=== PATIENT | female | born 1980 | race Caucasian/White ===

== ENCOUNTER 2020-01-02 19:02 | Emergency (ER) | payer OTHER, SELFPAY ==
--- NOTE | 2020-01-02 19:04 | ED.GENADULT ---
HPI - General Adult General Chief complaint: Wound/Laceration Stated complaint: Laceration or right hand Time Seen by Provider: 01/02/20 19:04 Source: patient Mode of arrival: ambulatory Limitations: no limitations History of Present Illness HPI narrative: 39-year-old female patient presents to the [facility] with complaints of a laceration to the right index finger. Patient states that she was washing dishes and states that a glass that she was washing broke and lacerated her finger. Denies any numbness or tingling. Patient states last tetanus shot was 2 years ago. Related Data Home Medications Medication Instructions Recorded Confirmed aspirin [Adult Aspirin Regimen] 81 mg PO DAILY 02/14/19 12/05/19 gmjaoxprtnql-ghg-jyjy-FA-vit K tablet PO 02/14/19 12/05/19 [Adults Multivitamin] Allergies Allergy/AdvReac Type Severity Reaction Status Date / Time labetalol Allergy Severe hepatitis Verified 12/05/19 17:18 Review of Systems Review of Systems: Narrative: CONSTITUTIONAL: Denies fever, chills, or sweats. EYES: Denies visual changes, redness, or discharge. ENT: Denies rhinorrhea, congestion, sore throat, or otalgia. CARDIOVASCULAR: Denies chest pain, palpitations, or edema. RESPIRATORY: Denies cough or dyspnea. GASTROINTESTINAL: Denies abdominal pain, nausea, vomiting, or diarrhea. GENITOURINARY: Denies dysuria or hematuria. SKIN: Denies rash or itching. Positive laceration right index finger MUSCULOSKELETAL: Denies back pain, joint pain, or myalgia. NEUROLOGIC: Denies headache, numbness, or weakness. PSYCHIATRIC: Denies anxiety or depression. [facility] Family History Family History Mother Hypertension Family history of eczema Father Family history of chronic obstructive pulmonary disease Social History Social History Smoking status: Former smoker Second hand tobacco smoke exposure: No Smoking end date: 02/23/03 Alcohol intake: current Gender identity (if verbalized by the patient): Female Comments At the time of my signature I agree with nursing past medical history, surgical, social, and family history. There is no relevant family history pertinent to the presenting complaint. Exam Narrative: Exam Narrative: GENERAL: Well-appearing, well-nourished, and in no acute distress. HEAD: Normocephalic, atraumatic. EYES: PERRLA and EOMI. ENT: Nares clear, no rhinorrhea or epistaxis. Mucous membranes moist. NECK: Supple. No lymphadenopathy CHEST: Clear to auscultation. No respiratory distress. HEART: Regular rate and rhythm. No murmur heard. Normal peripheral pulses. ABDOMEN: Soft, nontender, nondistended, normal active bowel sounds. EXTREMITIES: Normal range of motion. No edema. SKIN: Warm, dry, no rash. Patient has approximately 2 cm linear laceration over the right index finger with a rash laceration does go into the MCP joint area. Patient does have excellent range of motion. Good cap refill good pulses present. There is some active bleeding noted on arrival. NEURO: No focal deficits. Alert and oriented x3. Course Vital Signs Vital signs: Vital Signs Temperature 36.3 C L 01/02/20 19:10 Pulse Rate 79 01/02/20 19:10 Respiratory Rate 16 01/02/20 19:10 Blood Pressure 140/90 01/02/20 19:10 Pulse Oximetry 99 01/02/20 19:10 Temperature 36.3 C L 01/02/20 19:23 Pulse Rate 79 01/02/20 19:23 Respiratory Rate 16 01/02/20 19:23 Blood Pressure 140/90 01/02/20 19:23 Pulse Oximetry 99 01/02/20 19:23 Vital signs reviewed. The patient has been informed that they may have pre-hypertension or Hypertension based on a BP reading in the department. I recommend that the patient call the primary care provider listed on their discharge instructions or a physician of their choice this week to arrange follow up for further evaluation of possible pre-hypertension or Hypertension
[2020-01-02 19:10] VITALS: BP 140/90; PULSE 79; RESP 16; TEMP 36.3; O2SAT 99
[2020-01-02 19:23] VITALS: BP 140/90; PULSE 79; RESP 16; TEMP 36.3; O2SAT 99
== END 2020-01-02 19:32 | disposition home or self-care (01) ==
PROVIDERS: Emergency Provider Nurse Practitioner Family; PCP Internal Medicine
DX: S61.210A Laceration without foreign body of right index finger without damage to nail, initial encounter (principal); W25.XXXA Contact with sharp glass, initial encounter; Y93.G1 Activity, food preparation and clean up; Z79.82 Long term (current) use of aspirin; Z87.891 Personal history of nicotine dependence; E78.00 Pure hypercholesterolemia, unspecified; I10 Essential (primary) hypertension
CPT/HCPCS: 12001; 99212; G0463

== ENCOUNTER → 2020-07-14 08:55 | Outpatient (CLI) | payer OTHER, SELFPAY ==
--- NOTE | ~2020-07-14 | US_ITS ---
EXAMINATION: US right upper quadrant DATE: 07/14/2020 09:16 INDICATION: Elevated liver function tests TECHNIQUE: Multiple grayscale and Doppler ultrasound images of the abdomen were obtained. COMPARISON: 11/04/2014 FINDINGS: The head and body of the pancreas are normal. The pancreatic tail is obscured by bowel gas. There is a 2 cm cyst of the left hepatic lobe. The liver is otherwise normal with normal echogenicit y and echotexture. No surface nodularity. Normal hepatopetal flow in the main portal vein. Stones are present in the nondistended gallbladder, one of which is at the gallbladder neck. There is no perich olecystic fluid or gallbladder wall thickening. The normal common bile duct measures 5 mm. There was no sonographic Paul sign. IMPRESSION: 1. Cholelithiasis with one stone seen at the gallbladder neck without additional findings of cholecys titis. Reviewed, dictated and finalized at location A. IMPRESSION: 1. Cholelithiasis with one stone seen at the gallbladder neck without additiona l findings of cholecystitis.
== END ==
PROVIDERS: Visit Provider Obstetrics & Gynecology
DX: R74.01 Elevation of levels of liver transaminase levels (principal); K80.20 Calculus of gallbladder without cholecystitis without obstruction
CPT/HCPCS: 76705

== ENCOUNTER 2020-10-31 10:53 | Outpatient (CLI) | payer OTHER, SELFPAY ==
--- NOTE | 2020-11-02 11:26 | WPDHOLTEREM ---
Holter/Event Monitor Holter/Event Monitor Date of procedure: 10/31/20 Holter/Event Procedure: 24 Hr Holter Monitor Indications: SVT in Conclusion: 1. 24 hour holter monitor on 10/31/20. 2. Underlying rhythm is sinus rhythm. HR range 61-171 bpm; average HR 96 bpm. HR at 171 bpm was at 08:34. 3. There are 11 premature supraventricular complexes. No supraventricular tachycardia. 4. There are 64 premature ventricular complexes. No ventricular tachycardia. 5. No sinoatrial or atrioventricular blocks. No significant pauses greater than 2 seconds. 6. No symptoms available for correlation.
== END 2020-10-31 10:54 | disposition home or self-care (01) ==
PROVIDERS: PCP Internal Medicine; Visit Provider Advanced Practice Midwife
DX: O99.419 Diseases of the circulatory system complicating pregnancy, unspecified trimester (principal); I47.1 Supraventricular tachycardia
CPT/HCPCS: 93225; 93226

== ENCOUNTER 2021-01-12 10:39 | Outpatient (CLI) | payer OTHER, SELFPAY ==
[2021-01-12 12:27] LABS: Hematocrit 35.1 % (37.0-47.0); Hemoglobin 11.8 g/dL (12.0-15.0); Mean Corpuscular HGB Conc 33.6 g/dl (32-36); Mean Corpuscular Volume 80.3 fl (80-100); Mean Platelet Volume 9.3 fl (7.4-10.4); Platelet Count Result 229 k/mm3 (150-375); Red Blood Count 4.37 M/mm3 (4.2-5.4); Red Cell Distribution Width 13.8 % (11.5-14.5); White Blood Count 11.2 K/mm3 (4.5-10.0)
[2021-01-14 06:11] LABS: Rapid Plasma Reagin Non-Reactive (NonReactive)
== END 2021-01-12 10:40 | disposition home or self-care (01) ==
LOC: ANHLAB 10:43
PROVIDERS: PCP Internal Medicine; Visit Provider Obstetrics & Gynecology
DX: Z34.93 Encounter for supervision of normal pregnancy, unspecified, third trimester (principal); Z3A.00 Weeks of gestation of pregnancy not specified
CPT/HCPCS: 36415; 85027; 86592; 86850; 86900; 86901

== ENCOUNTER 2021-01-14 09:51 | Inpatient (IN) | payer OTHER, SELFPAY ==
--- NOTE | 2020-12-26 13:29 | PC.NURSE ---
VERIFIED WITH OR SCHEDULE AND PATIENT--C/S ON 01/14/21 AT 1200 PATIENT GIVEN REQUISITION FOR LAB DRAW ON 01/12/21
[2021-01-14] VITALS (52 sets, daily range): BP systolic 134–160; BP diastolic 72–105; PULSE 76–127; RESP 14–19; TEMP 36.3–37.1; O2SAT 89–100; BMI 45.2
--- NOTE | 2021-01-14 09:51 | LDADM ---
This patient, Ramona Smith, was admitted to Labor/Delivery/Recovery 119 on 01/14/21 at 09:51. Plans for labor, pain management and were discussed with patient. Patient/family oriented to hospital policies and general routines including ID bracelet, bed and alarms, visiting hours, pain management, procedures, bathroom and other care routines, personal items, smoking policy, room service/diet and guest tray routines, infant security routines, and visiting hours. Patient/Family are encouraged to report perceived risks to care and to ask questions if they do not understand what they are told or what they should do. See OBIX for further documentation.
[2021-01-14] MEDS: LACTATED RINGERS 1,000 ML 125 ML IV CONT (10:20)
--- NOTE | 2021-01-14 10:42 | WPDANESEPPF ---
Anes - Initial Pre Proc Eval Procedure: Operation Date: 01/14/21 12:00 Proposed Procedures p Section - Alivia Mcclellan MD Date/Time: 01/14/21 10:42 Surgeon: Alivia Mcclellan MD Pre Op Diagnosis: Repeat Patient Data Age: 40 Gender: F Height: 1.78 m Weight: 143 kg Last Vital Signs Pulse 110 H 01/14/21 10:30 BP 148/96 H 01/14/21 10:30 Allergies Allergy/AdvReac Type Severity Reaction Status Date / Time labetalol Allergy Severe hepatitis Verified 12/05/19 17:18 methyldopa Allergy Severe Depression Verified 12/26/20 12:47 Home Medications Medication Instructions Recorded Confirmed Type aspirin [Adult Aspirin Regimen] 162 mg PO DAILY 02/14/19 01/02/20 History qvnvstiuujit-bqh-ejzs-FA-vit K 1 tablet PO DAILY 02/14/19 01/02/20 History [Adults Multivitamin] hydrochlorothiazide 25 mg tablet See Rx Instructions .ROUTE 02/27/20 Rx .COMPLEX #90 tablet diltiazem HCl 240 mg PO DAILY 12/26/20 12/26/20 History hydroxyzine HCl 25 mg PO QID PRN 12/26/20 12/26/20 History insulin glargine [Lantus U-100 25 unit SUBCUT QAM 12/26/20 12/26/20 History Insulin] insulin glargine [Lantus U-100 28 unit SUBCUT HS 12/26/20 12/26/20 History Insulin] insulin lispro [Humalog U-100 4 unit SUBCUT DIRECTED 12/26/20 12/26/20 History Insulin] nifedipine 60 mg PO DAILY 12/26/20 12/26/20 History potassium chloride 10 meq PO DAILY 12/26/20 12/26/20 History sertraline 75 mg PO DAILY 12/26/20 12/26/20 History Patient hx anesthesia problems: none Family hx anesthesia problems: none Results Review: All pre-operative results and documents have been reviewed as part of the pre-operative evaluation. [facility] Past Medical History Medical History (Updated 01/14/21 @ 10:42 by Samuel Wynn MD) Gestational diabetes Liver failure Renal failure Surgical History Surgical History (Updated 01/14/21 @ 10:43 by Samuel Wynn MD) History of section Family History Family History Mother A-fib Hypertension Father SVT (supraventricular tachycardia) Family history of chronic obstructive pulmonary disease Hypertension Sibling Hypertension Dandy-Walker syndrome Heart attack Grandparent Parkinson disease Hypertension Breast cancer in female Daughter Trisomy 18 Social History Social History Smoking status: Former smoker Second hand tobacco smoke exposure: No Smoking end date: 02/23/03 Alcohol intake: current Substance use: never Gender identity (if verbalized by the patient): Female Spiritual care concerns: No Anes - Eval Final PreProcedure Day of Procedure 01/14/21 10:42 Patient weight: morbidly obese Heart: regular rate and rhythm Lungs: clear to auscultation Airway: Mallampati scale class II Neurological: alert and oriented Last oral intake: >/= 8 hours ASA classification: III Emergent: no Anesthetic plan: proceed Anesthesia type and monitoring: regional spinal and standard monitoring Results Review: All pre-operative results and documents have been reviewed as part of the pre-operative evaluation. Informed Consent: The patient's anesthetic plan and its attendant risks and benefits were discussed with the patient/family/POA. Questions were solicited and answers provided to the satisfaction of the patient/family/POA.
[2021-01-14 11:04] LABS: Glucose Point of Care 64 mg/dl (65-105)
--- NOTE | 2021-01-14 11:05 | PM.IMHP ---
H&P: HPI History of Present Illness Date/Time: 01/14/21 11:05 This patient is a 40-year-old multiparous female with a previous delivery. We have agreed for repeat . She denies any nausea, vomiting, fever, chills. She denies any chest pain or shortness of breath. She denies any contractions, loss of fluid, vaginal bleeding. She has a headache, blurry vision, epigastric pain. Chief Complaint: Term at Review of Systems Review of Systems: All systems reviewed & are unremarkable except as noted in HPI and below Constitutional: Constitutional: Denies chills, Denies fatigue, Denies fever(s) and Denies weakness Eyes: Eyes: Denies blurry vision, Denies change in vision, Denies loss of peripheral vision, Denies loss of vision, Denies other visual disturbances and Denies eye pain ENT: Denies vertigo, Denies dizziness, Denies hearing loss, Denies mouth pain, Denies nasal obstruction, Denies neck mass and Denies neck pain Cardiovascular: Cardiovascular: Denies chest pain, Denies diaphoresis, Denies syncope, Denies leg edema and Denies dyspnea Respiratory: Respiratory: Denies chest congestion, Denies cough, Denies hemoptysis, Denies dyspnea and Denies wheezing Gastrointestinal: Gastrointestinal: Denies abdominal pain, Denies constipation, Denies diarrhea, Denies nausea and Denies vomiting Genitourinary: Genitourinary: Denies hematuria, Denies change in libido, Denies nocturia, Denies genital lesions, Denies flank pain and Denies urinary urgency Musculoskeletal: Musculoskeletal: Denies abnormal gait, Denies back pain, Denies myalgias, Denies arthralgias, Denies joint swelling, Denies muscle weakness and Denies neck pain Integumentary/Breasts: Skin/Breast: Denies swelling, Denies breast pain, Denies breast mass, Denies dry skin, Denies nipple discharge, Denies unusual bruising and Denies jaundice Neurologic: Denies Neuro-related abnormal movements, Denies Abnormal speech present, Denies abnormal gait, Denies behavioral changes, Denies confusion, Denies vertigo, Denies dizziness, Denies syncope, Denies loss of vision, Denies memory loss, Denies convulsions and Denies weakness Psychiatric: Psychiatric: Denies abnormal sleep pattern, Denies behavioral changes, Denies change in libido, Denies confusion, Denies depression, Denies anhedonia and Denies memory loss Endocrine: Endocrine: Reports no additional endocrine complaints, Denies change in libido and Denies fatigue Hematologic/Lymphatic: Hematologic/Lymphatic: Reports no additional hematologic/lymphatic complaints Allergic/Immunologic: Allergic/Immunologic: Reports no additional allergic/immunologic complaints and Denies wheezing PMFSH Past Medical History Medical History (Updated 01/14/21 @ 11:06 by Alivia Mcclellan MD) Gestational diabetes Liver failure Renal failure Surgical History Surgical History (Updated 01/14/21 @ 11:06 by Alivia Mcclellan MD) History of section Family History Family History Mother A-fib Hypertension Father SVT (supraventricular tachycardia) Family history of chronic obstructive pulmonary disease Hypertension Sibling Hypertension Dandy-Walker syndrome Heart attack Grandparent Parkinson disease Hypertension Breast cancer in female Daughter Trisomy 18 Social History Social History Smoking status: Never smoker Second hand tobacco smoke exposure: Yes Smoking end date: 02/23/03 Alcohol intake: current Substance use: never Gender identity (if verbalized by the patient): Female Spiritual care concerns: No Meds Home Medications and Allergies Home Medications Medication Instructions Recorded Confirmed Type aspirin [Adult Aspirin Regimen] 162 mg PO DAILY 02/14/19 01/02/20 History bvyajlaslhtn-opi-dgkh-FA-vit K 1 tablet PO DAILY 02/14/19 01/02/20 History [Adults Multivitamin] hydr
--- NOTE | 2021-01-14 11:07 | WPDHPUPDATE1 ---
History and Physical Update Update Date/Time: 01/14/21 11:07 History and Physical has been reviewed, including an updated exam of the patient. There are NO changes in the patient's condition. Risks, benefits, and alternatives have been discussed and questions answered. Patient agrees to proceed with procedure.
[2021-01-14 12:02] LABS: Amphetamine Screen Urine Negative (Negative); Barbiturate Screen Urine Negative (Negative); Benzodiazepines Screen Urine Negative (Negative); Cannabinoid Screen Urine Negative (Negative); Cocaine Screen Urine Negative (Negative); Methadone Screen Urine Negative (Negative); Opiate Screen Urine Negative (Negative); Phencyclidine Screen Urine Negative (Negative)
--- NOTE | 2021-01-14 12:16 | P.OP_ITS ---
Procedure Note - Detailed Date of Procedure 01/14/21 Pre-op Diagnosis Repeat Post-op Diagnosis same Procedure Performed Low-transverse section Surgeon Alivia Mcclellan MD Anesthesia spinal Indications previous , term gestatioin Findings Normal gestational maternal anatomy, average size infant, normal Apgars. Description of Procedure The patient was taken the operating room. She was prepped and draped in dorsal supine position with a leftward tilt. This was done after spinal anesthetic was applied. A low-transverse skin incision was made and carried down till of the fascia with the knife. The fascial incision was made with the knife. The fascial incision was extended laterally with Augustine scissors. The fascia was tented upward superiorly and inferiorly the rectus muscles were dissected off bluntly. The rectus muscles were the midline. The preperitoneal fat and peritoneum were dissected open bluntly at the superior aspect of the rectus muscles. The peritoneal incision was extended superior and inferior with good position of bladder. The uterine incision was made with a scalpel down to the level of the amniotic cavity. The amniotic cavity was ente red bluntly. The infant was delivered. The cord was clamped and cut and the infant was handed off to waiting pediatric staff. Cord bloods were obtained. The placenta was removed manually. The uterus was exteriorized. The uterus was cleared of all clots, debris and membranes. The uterus was closed in 0 Vicryl running lock fashion. An imbricating over a was placed along the incision line as well. The uterus was returned to the abdomen. The gutters were cleared of all clots and debris. The fascia was closed with 0 Vicryl running fashion. The subcutaneous tissue was irrigated pinpoint bleeders were cauterized. The skin was closed with subcuticular absorbable uzair. The skin incision line was covered with glue. The patient tolerated the procedure well. She has taken recovery room in stable condition. Sponge lap and needle counts were correct x2. Pathology yes Complications No immediate complications Condition stable Disposition PACU
[2021-01-14] MEDS: OXYTOCIN 30 UNITS/NS 500 ML 30 UNITS/500 ML BAG 125 UNITS IV CONT (13:07)
[2021-01-14] MEDS: fentaNYL CITRATE INJ (*CRX) 100 MCG/2 ML VIAL 25 MCG IV PUSH (13:07)
--- NOTE | 2021-01-14 14:42 | PC.NURSE ---
Patient transferred to post room #290 via stretcher. Support person present. Oriented to unit, room, information board, rooming in, admission packet and security measures. Patient verbalizes understanding.
--- NOTE | 2021-01-14 15:25 | PC.NURSE ---
Mother called out for assist with feeding, reporting was sleepy and has not latched since . Primary RN reports infant has intermittent grunting and has cleared to attempt to breastfeed. Infant is able to freely thrust tongue past gum ridge and flange both lips. Reviewed feeding cues, frequencies, duration of feedings, feeding elimination flow sheet, and signs of adequate intake. Demonstrated stimulation techniques to wake for feeding. Assisted with infant to breast. Reviewed positioning/alignment in cross cradle, holding breast in ?U? hold and guided asymmetrical latch on. Reviewed rational for each. remained sleepy and made no attempt to latch within 15 minutes of attempt. Advised to skin to skin and attempt again in 30 minutes. Advised to call out if shows feeding cues. Report to primary RN of infant status.
--- NOTE | 2021-01-14 15:37 | PC.NURSE ---
1500- called,informed total blood loss in recovery was 716. Pt has a slow steady trickle of vaginal bleeding, cytotec ordered.
--- NOTE | 2021-01-14 15:38 | PC.NURSE ---
1155- on unit, informed of bp's and blood loss of 353 with clots noted. No further orders received.
--- NOTE | 2021-01-14 16:15 | PC.NURSE ---
1601- called,informed a manual exam was performed on pt for no change in bleeding 30 minutes after cytotec placed. Cervix was 5cm dilated, no clots noted. Moderate amount of thin bleeding noted. Requested IV pain meds, Fentanyl ordered. Will call back with further orders for bleeding.
[2021-01-14] MEDS: DEXTROSE 5%/0.45% SOD CHL 1,000 ML 125 ML IV CONT (17:40)
[2021-01-14] MEDS: HYDROcodone/acetaminophen (*CRX) 5-325 MG TABLET 1 TAB PO (17:41)
[2021-01-14] MEDS: SIMETHICONE 80 MG TAB.CHEW PO (17:44)
[2021-01-14] MEDS: CARBOPROST TROMETHAMINE 250 MCG/ML AMPUL IM (17:45)
[2021-01-14 20:55] LABS: Basophils Percent Auto 0.2 % (0.2-1.2); Eosinophils Percent Auto 0.2 % (0-4.4); Hematocrit 27.2 % (37.0-47.0); Hemoglobin 9.1 g/dL (12.0-15.0); Immature Granulocyte Absolute 0.06 K/mm3 (0.00-0.031); Immature Granulocyte Percent A 0.5 % (0-0.5); Lymphocytes Absolute Auto 0.84 K/mm3 (0.9-3.2); Lymphocytes Percent Auto 6.7 % (18.3-44.2); Mean Corpuscular HGB Conc 33.5 g/dl (32-36); Mean Corpuscular Hemoglobin 27.5 pg (26-34); Mean Corpuscular Volume 82.2 fl (80-100); Mean Platelet Volume 9.3 fl (7.4-10.4); Monocytes Absolute Auto 0.6 K/mm3 (0.1-0.6); Monocytes Percent Auto 4.6 % (2.6-8.5); Neutrophils Percent Auto 87.8 % (45.5-73.1); Platelet Count Result 199 k/mm3 (150-375); Red Blood Count 3.31 M/mm3 (4.2-5.4); Red Cell Distribution Width 13.9 % (11.5-14.5); White Blood Count 12.5 K/mm3 (4.5-10.0)
[2021-01-14 21:18] LABS: Alanine Aminotransferase 16 U/L (4-35); Albumin Level 2.7 g/dL (3.5-5.1); Alkaline Phosphatase 121 U/L (38-126); Anion Gap 4 mmol/L (8-16); Aspartate Amino Transferase 26 U/L (14-36); Bilirubin,Total 0.5 mg/dL (0.2-1.3); Blood Urea Nitrogen 11 mg/dL (7-17); Calcium 8.4 mg/dL (8.4-10.2); Carbon Dioxide 24 mmol/L (22-30); Chloride 98 mmol/L (98-107); Estimated CRCL calculation 143 ml/min; Estimated Glomerular Filt Rate > 60; Glucose 151 mg/dL (65-110); Potassium 3.8 mmol/L (3.4-5.0); Sodium 126 mmol/L (137-145); Uric Acid 5.9 mg/dL (2.5-7.5)
[2021-01-15] VITALS: BP 145/89; PULSE 92; RESP 18; TEMP 36.6; O2SAT 97
[2021-01-15 04:10] VITALS: BP 151/107; PULSE 95; RESP 18; TEMP 37.2; O2SAT 96
[2021-01-15] MEDS: IBUPROFEN 600 MG TABLET PO ×3 (04:21→17:32)
[2021-01-15 05:19] LABS: Basophils Percent Auto 0.3 % (0.2-1.2); Eosinophils Percent Auto 0.3 % (0-4.4); Hemoglobin 8.4 g/dL (12.0-15.0); Immature Granulocyte Absolute 0.05 K/mm3 (0.00-0.031); Immature Granulocyte Percent A 0.4 % (0-0.5); Lymphocytes Absolute Auto 1.02 K/mm3 (0.9-3.2); Lymphocytes Percent Auto 8.9 % (18.3-44.2); Mean Corpuscular HGB Conc 33.6 g/dl (32-36); Mean Corpuscular Hemoglobin 27.3 pg (26-34); Mean Corpuscular Volume 81.2 fl (80-100); Mean Platelet Volume 9.4 fl (7.4-10.4); Monocytes Absolute Auto 0.6 K/mm3 (0.1-0.6); Monocytes Percent Auto 5.1 % (2.6-8.5); Neutrophils Absolute Auto 9.7 K/mm3 (1.3-6.7); Platelet Count Result 216 k/mm3 (150-375); Red Blood Count 3.08 M/mm3 (4.2-5.4); White Blood Count 11.5 K/mm3 (4.5-10.0)
--- NOTE | 2021-01-15 08:00 | PC.NURSE ---
Mother called out for assist with feeding, infant now to mother after Level II. awake and crying with feeding cues noted. Reviewed infant feeding cues, frequencies, duration of feedings, feeding elimination flow sheet, and signs of adequate intake. Demonstrated stimulation techniques to wake for feeding. Assisted with infant to breast. Reviewed positioning/alignment in cross cradle, holding breast in ?U? hold and guided asymmetrical latch on. Reviewed rational for each. Infant able to latch correctly within a few attempts. nursed eagerly with steady draws and occasional swallowing noted, some pausing noted. Reviewed signs of a correct latch, effective nursing and suck swallow ratio. Suggested mother stimulate while feeding to increase stimulation for milk supply, for increased intake and to assist with maintaining deep latch. Infant would slip to shallow latch causing tenderness. Demonstrated how to adjust latch more deeply while feeding as needed. Mother reports she can feel the difference in latch with no tenderness. Nipple care reviewed of lanolin after feedings, warm compresses as needed. Instructed mother to call out for RN assistance if she is unable to latch for feeding or she has discomfort with nursing. Instructed feeding should be initiated three hours from start of last feeding or if feeding cues are noted before. Mother voiced understanding of information shared.
--- NOTE | 2021-01-15 08:17 | PM.OBPNVD ---
OB - PN: Subj Subjective Date/time seen: 01/15/21 08:17 Patient comments: no complaints, pain well controlled, tolerating diet and flatus present OB - PN: Obj Data Labs CBC & Chem 7: 01/15/21 04:01 01/14/21 20:44 Labs: Laboratory Results - last 24 hr 01/14/21 01/14/21 01/14/21 11:01 11:37 20:44 WBC 12.5 H RBC 3.31 L Hgb 9.1 L Hct 27.2 L MCV 82.2 MCH 27.5 MCHC 33.5 RDW 13.9 Plt Count 199 MPV 9.3 Immature Gran % (Auto) 0.5 Neut % (Auto) 87.8 H Lymph % (Auto) 6.7 L Sterling % (Auto) 4.6 Eos % (Auto) 0.2 Baso % (Auto) 0.2 Lymph # (Auto) 0.84 L Sterling # (Auto) 0.6 Eos # (Auto) 0.0 Baso # (Auto) 0.0 Abs Immat Gran (auto) 0.06 H Absolute Neuts (auto) 11.0 H Absolute Nucleated RBC 0.0 Nucleated RBC % 0.0 Sodium Potassium Chloride Carbon Dioxide Anion Gap BUN Creatinine Estim Creat Clear Calc Estimated GFR Glucose POC Capillary Glucose 64 L Uric Acid Calcium Total Bilirubin AST ALT Alkaline Phosphatase Total Protein Albumin Urine Opiates Screen Negative Urine Methadone Screen Negative Ur Barbiturates Screen Negative Ur Phencyclidine Scrn Negative Ur Amphetamine Screen Negative U Benzodiazepines Scrn Negative Urine Cocaine Screen Negative U Cannabinoids Screen Negative 01/14/21 01/15/21 20:44 04:01 WBC 11.5 H RBC 3.08 L Hgb 8.4 L Hct 25.0 L MCV 81.2 MCH 27.3 MCHC 33.6 RDW 14.0 Plt Count 216 MPV 9.4 Immature Gran % (Auto) 0.4 Neut % (Auto) 85.0 H Lymph % (Auto) 8.9 L Sterling % (Auto) 5.1 Eos % (Auto) 0.3 Baso % (Auto) 0.3 Lymph # (Auto) 1.02 Sterling # (Auto) 0.6 Eos # (Auto) 0.0 Baso # (Auto) 0.0 Abs Immat Gran (auto) 0.05 H Absolute Neuts (auto) 9.7 H Absolute Nucleated RBC 0.0 Nucleated RBC % 0.0 Sodium 126 L Potassium 3.8 Chloride 98 Carbon Dioxide 24 Anion Gap 4 L BUN 11 Creatinine 0.70 Estim Creat Clear Calc 143 Estimated GFR > 60 Glucose 151 H POC Capillary Glucose Uric Acid 5.9 Calcium 8.4 Total Bilirubin 0.5 AST 26 ALT 16 Alkaline Phosphatase 121 Total Protein 5.0 L Albumin 2.7 L Urine Opiates Screen Urine Methadone Screen Ur Barbiturates Screen Ur Phencyclidine Scrn Ur Amphetamine Screen U Benzodiazepines Scrn Urine Cocaine Screen U Cannabinoids Screen OB - PN A/P Plan day: 1 Comments: Post Op LTCS - no problems, routine recovery, HTN - to resume HCTZ, significant post bleed - to repeat CBC today Time Spent With Patient Time: Total time spent is greater than 50% in coordination of care (as documented) at patient's floor/unit and/or counseling patient: Exam Const: General: cooperative, healthy appearing, comfortable and no acute distress Resp: Auscultation: no crackles, no rales, no rhonchi and no wheezes Cardio: Rhythm: regular rhythm Heart sounds: no click and no murmurs GI: Inspection: non-distended Auscultation: normal bowel sounds Extrem: General: normal to inspection, no pedal edema and no calf tenderness
[2021-01-15 09:00] VITALS: BP 162/98; PULSE 81; TEMP 37.2
[2021-01-15] MEDS: MULTIVIT/MIN/PREN/FOL AC/IRON TABLET 1 TAB PO (09:04)
[2021-01-15] MEDS: SERTRALINE HCL 25 MG TABLET 75 MG PO (09:04)
[2021-01-15] MEDS: NIFEdipine 30 MG TAB.ER.24 60 MG PO (09:05)
[2021-01-15] MEDS: DOCUSATE SODIUM 100 MG CAPSULE PO ×2 (09:05→17:32)
[2021-01-15] MEDS: POLYSACCHARIDE IRON COMPLEX 150 MG CAPSULE PO ×2 (09:05→17:32)
[2021-01-15] MEDS: hydroCHLOROthiazide 25 MG TABLET PO (09:05)
[2021-01-15] MEDS: HYDROcodone/acetaminophen (*CRX) 5-325 MG TABLET 1 TAB PO ×2 (09:53→17:33)
--- NOTE | 2021-01-15 11:16 | WPDANLDNPN2 ---
Anes-Prog Note L&D-Neuraxial Date/Time: 01/15/21 11:16 Neuraxial medications: intrathecal PF morphine Opiod-related complaints: none Patient feedback: Patient satisfied with post-operative pain management.
--- NOTE | 2021-01-15 11:16 | WPDANLDPN2 ---
Anes-Prog Note L&D Date/Time: 01/15/21 11:16 Comfortable throughout: labor and delivery Neuraxial method: epidural Epidural/Spinal procedure site: clean & non-tender Neuro status: Neuro function grossly intact. Cardiovascular status: normal Respiratory status: normal Airway patency: baseline Mental status: baseline Post-Op hydration status: normal Vital Signs: Last Vital Signs Temp 37.2 C 01/15/21 09:00 Pulse 81 01/15/21 09:00 Resp 18 01/15/21 04:10 BP 162/98 H 01/15/21 09:00 Pulse Ox 96 01/15/21 04:10 Pain score (VAS): 0 I/O: Intake & Output 01/14/21 01/15/21 01/15/21 23:59 07:59 15:59 Intake Total 1100 Output Total 700 Balance 400 Post-procedural complaints: none Patient feedback: Patient satisfied with anesthetic care.
[2021-01-15 16:11] LABS: Basophils Percent Auto 0.2 % (0.2-1.2); Eosinophils Absolute Auto 0.1 K/mm3 (0-0.3); Eosinophils Percent Auto 0.5 % (0-4.4); Hematocrit 24.8 % (37.0-47.0); Hemoglobin 8.5 g/dL (12.0-15.0); Immature Granulocyte Absolute 0.07 K/mm3 (0.00-0.031); Immature Granulocyte Percent A 0.6 % (0-0.5); Lymphocytes Absolute Auto 1.38 K/mm3 (0.9-3.2); Lymphocytes Percent Auto 11.1 % (18.3-44.2); Mean Corpuscular HGB Conc 34.3 g/dl (32-36); Mean Corpuscular Hemoglobin 28.1 pg (26-34); Mean Corpuscular Volume 82.1 fl (80-100); Mean Platelet Volume 9.1 fl (7.4-10.4); Monocytes Absolute Auto 0.8 K/mm3 (0.1-0.6); Monocytes Percent Auto 6.4 % (2.6-8.5); Neutrophils Absolute Auto 10.1 K/mm3 (1.3-6.7); Neutrophils Percent Auto 81.2 % (45.5-73.1); Platelet Count Result 217 k/mm3 (150-375); Red Blood Count 3.02 M/mm3 (4.2-5.4); Red Cell Distribution Width 14.3 % (11.5-14.5); White Blood Count 12.5 K/mm3 (4.5-10.0)
[2021-01-15 20:00] VITALS: BP 144/93; PULSE 96; RESP 18; TEMP 36.8; O2SAT 98
[2021-01-16 06:02] VITALS: BP 142/77
[2021-01-16 08:00] VITALS: BP 145/89; PULSE 89; RESP 16; TEMP 37.4; O2SAT 98
[2021-01-16] MEDS: MULTIVIT/MIN/PREN/FOL AC/IRON TABLET 1 TAB PO (08:45)
[2021-01-16] MEDS: DOCUSATE SODIUM 100 MG CAPSULE PO ×2 (08:45→16:33)
[2021-01-16] MEDS: POLYSACCHARIDE IRON COMPLEX 150 MG CAPSULE PO ×2 (08:45→16:33)
[2021-01-16] MEDS: IBUPROFEN 600 MG TABLET PO ×2 (08:45→16:33)
[2021-01-16] MEDS: NIFEdipine 30 MG TAB.ER.24 60 MG PO (10:09)
[2021-01-16] MEDS: hydroCHLOROthiazide 25 MG TABLET PO (10:10)
[2021-01-16] MEDS: SERTRALINE HCL 25 MG TABLET 75 MG PO (10:10)
--- NOTE | 2021-01-16 10:29 | P.DS_ITS ---
DS: Admitting Diagnosis Discharge Date 01/16/21 Admitting Diagnosis term , chronic HTN DS: Discharge Diagnosis Discharge Diagnosis (1) Previous delivery, delivered: Code(s): O34.219 - Maternal care for unspecified type scar from previous delivery Status: Acute (2) Chronic hypertension: Code(s): I10 - Essential (primary) hypertension Status: Acute OB - DS: Summary OB Procedures : NST and Ultrasound OB Procedures Intrapartum: OB Procedures: : None Peripartum Data Procedures: Procedures Operation Date: 01/14/21 12:00 Actual Procedure Side Surgeon p Section Alivia Mcclellan MD Time Spent with Patient Time attestation: Total time spent providing and/or coordinating discharge services: DS: Data Data Completed and Pending Pending studies at discharge: Pending at discharge 01/14/21 12:44 Surgical [PTH] Routine Labs on day of discharge: Labs from last 24 hours 01/15/21 15:57 WBC 12.5 H RBC 3.02 L Hgb 8.5 L Hct 24.8 L MCV 82.1 MCH 28.1 MCHC 34.3 RDW 14.3 Plt Count 217 MPV 9.1 Immature Gran % (Auto) 0.6 H Neut % (Auto) 81.2 H Lymph % (Auto) 11.1 L [place] % (Auto) 6.4 Eos % (Auto) 0.5 Baso % (Auto) 0.2 Lymph # (Auto) 1.38 [place] # (Auto) 0.8 H Eos # (Auto) 0.1 Baso # (Auto) 0.0 Abs Immat Gran (auto) 0.07 H Absolute Neuts (auto) 10.1 H Absolute Nucleated RBC 0.0 Nucleated RBC % 0.0 Discharge Plan Discharge Discharging Clinician: Alivia Mcclellan Patient Disposition: Home, Self-Care Activity: pelvic rest Diet: regular Patient Instructions: Antibiotic Form Stand Alone Forms: General Discharge Information Follow-up/Referrals: Alivia Mcclellan MD [Physician] - Discharge Medications: New hydrocodone-acetaminophen 5-325 mg tablet 1 - 2 tablet PO Q6H PRN (Reason: pain) Qty: 25 RF: 0 Continued Adults Multivitamin 18 mg iron-400 mcg-25 mcg Tablet 1 tablet PO DAILY RF: 0 potassium chloride 10 mEq Capsule, Extended Release 10 meq PO DAILY RF: 0 sertraline 50 mg Tablet 75 mg PO DAILY RF: 0 nifedipine 60 MG 60 mg PO DAILY RF: 0 diltiazem HCl 240 mg Capsule,Extended Release 24 Hr 240 mg PO DAILY RF: 0 hydroxyzine HCl 25 mg Tablet 25 mg PO QID PRN (Reason: Anxiety) RF: 0 Discontinued aspirin [Adult Aspirin Regimen] 81 mg Tablet,Delayed Release (Dr/Ec) 162 mg PO DAILY RF: 0 Humalog U-100 Insulin 100 unit/mL Cartridge 4 unit subcut DIRECTED RF: 0 Lantus U-100 Insulin 100 unit/mL Cartridge 32 unit SUBCUT HS RF: 0 Lantus U-100 Insulin 100 unit/mL Cartridge 30 unit SUBCUT QAM RF: 0 hydrochlorothiazide 25 mg tablet See Rx Instructions .ROUTE .COMPLEX Qty: 90 RF: 4 Date of admission: 01/14/21 09:51 Primary Care Provider: Farooq Barron Admitting Provider: Alivia Mcclellan Attending physician on admission: Alivia Mcclellan Condition: Stable
--- NOTE | 2021-01-16 10:34 | P.PNOB_ITS ---
OB - PN: Subj Subjective Date/time seen: 01/16/21 10:34 Patient comments: no complaints, pain well controlled, incisional pain, tolerating diet and flatus present OB - PN: Obj Data Labs CBC & Chem 7: 01/15/21 15:57 01/14/21 20:44 Labs: Laboratory Results - last 24 hr 01/15/21 15:57 WBC 12.5 H RBC 3.02 L Hgb 8.5 L Hct 24.8 L MCV 82.1 MCH 28.1 MCHC 34.3 RDW 14.3 Plt Count 217 MPV 9.1 Immature Gran % (Auto) 0.6 H Neut % (Auto) 81.2 H Lymph % (Auto) 11.1 L [place] % (Auto) 6.4 Eos % (Auto) 0.5 Baso % (Auto) 0.2 Lymph # (Auto) 1.38 [place] # (Auto) 0.8 H Eos # (Auto) 0.1 Baso # (Auto) 0.0 Abs Immat Gran (auto) 0.07 H Absolute Neuts (auto) 10.1 H Absolute Nucleated RBC 0.0 Nucleated RBC % 0.0 OB - PN A/P Plan day: 2 Plan: routine care Comments: POD#2 LTCS - no problems, Time Spent With Patient Time: Total time spent is greater than 50% in coordination of care (as do cumented) at patient's floor/unit and/or counseling patient: Exam Const: General: comfortable, no acute distress and alert Resp: Effort & Inspection: normal respiratory effort Auscultation: no crackles, no rales and no rhonchi Cardio: Rate: regular rate Heart sounds: no click, no murmurs and no rubs GI: Inspection: non-distended GI Palp: No Tenderness to palpation present (GI) Auscultation: normal bowel sounds Other: Incision - CDI Extrem: General: normal to inspection, no pedal edema and no calf tenderness
--- NOTE | 2021-01-16 13:10 | PC.NURSE ---
Consult with pt., observed mother is able to independently latch with appropriate positioning/alignment. eagerly latches on first attempt with long rhythmical draws and frequent swallowing noted. She denies any nipple discomfort, is feeding as required and waking to feed if needed. Infant has had at least 8 effective feedings in the past 24 hours, and is currently meeting outcomes for weight, output, jaundice and feeding frequencies. Mother states she feels confident to continue effective /supplementation at home. Mother plans to discontinue supplement once her milk is in and infant is satisfied. Reviewed transition to breast milk, signs of adequate intake, and engorgement/relief. Instructed to call ICP if intake/output less than required. Reviewed regular medications mother is taking. Information provided per Katharina. Reviewed community resources on the [employer] website and in the Mom/Baby guide. Information on outpatient services provided. Mother has no further questions at this time. Instructed feeding should be initiated three hours from start of last feeding or if feeding cues are noted before until seen by ICP. Mother voiced understanding of information shared.
--- NOTE | 2021-01-16 17:30 | PC.NURSE ---
Patient viewed the discharge video Mother & Baby Care, The First Two Weeks . Patient was given the opportunity and encouraged to ask questions. Patient verbalized understanding of information shared and has been given the mother/baby guide for home reference.
[2021-01-18 13:13] VITALS: BP 153/88; PULSE 104; RESP 20; TEMP 37.6; O2SAT 100
== END 2021-01-16 17:40 | disposition home or self-care (01) | DRG 787 ==
LOC: ANHLDR 09:54 → ANHOB2 14:47
PROVIDERS: Admitting Provider Obstetrics & Gynecology; PCP Internal Medicine; Visit Provider Obstetrics & Gynecology
PROC: 10D00Z1 Extraction of Products of Conception, Low, Open Approach (ICD-10-PCS; CPT 59514; principal; 2021-01-14 12:00)
DX: O34.219 Maternal care for unspecified type scar from previous cesarean delivery (principal); O10.92 Unspecified pre-existing hypertension complicating childbirth; O24.429 Gestational diabetes mellitus in childbirth, unspecified control; O77.0 Labor and delivery complicated by meconium in amniotic fluid; O69.81X0 Labor and delivery complicated by cord around neck, without compression, not applicable or unspecified; Z3A.38 38 weeks gestation of pregnancy; Z37.0 Single live birth
CPT/HCPCS: 36415; 80053; 80307; 82948; 84550; 85025; 88307; A9270; J0131; J2274; J2590; J2704; J3010; J7120

== ENCOUNTER 2021-10-24 07:51 | Outpatient (CLI) | payer OTHER, SELFPAY ==
[2021-10-24 08:19] LABS: Anion Gap 4 mmol/L (8-16); Blood Urea Nitrogen 16 mg/dL (7-17); Carbon Dioxide 28 mmol/L (22-30); Chloride 99 mmol/L (98-107); Estimated Glomerular Filt Rate 55; Glucose 99 mg/dL (65-110); Potassium 3.9 mmol/L (3.4-5.0); Sodium 131 mmol/L (137-145)
== END 2021-10-24 07:52 | disposition home or self-care (01) ==
LOC: ANHLAB 07:53
PROVIDERS: PCP Family Medicine; Visit Provider Family Medicine
DX: I10 Essential (primary) hypertension (principal)
CPT/HCPCS: 36415; 80048

== ENCOUNTER → 2021-11-16 09:48 | Outpatient (CLI) | payer OTHER, SELFPAY ==
--- NOTE | ~2021-11-16 | MM_ITS ---
EXAMINATION: MM screening jalen BI w heidy HISTORY: Screening mammogram TECHNIQUE: Craniocaudal and mediolateral oblique 3-D tomosynthesis images were obtained and synthetic 2-D images were generated. CAD analysis was submitted and interpreted. COMPARISON: No prior mammogram is available for comparison at this institution. BREAST PARENCHYMAL COMPOSITION: There are scattered areas of fibroglandular density. FINDINGS: There is no evidence of suspicious mass, calcification, or architectural distortion to sugg est malignancy in either breast. There has been no suspicious interval change. IMPRESSION: 1. No mammographic evidence of malignancy. 2. Recommend routine screening mammography in one year. BI-RADS Category 1: Negative Reviewed, dictated and finalized at location A.
== END ==
PROVIDERS: PCP Family Medicine; Visit Provider Obstetrics & Gynecology
DX: Z12.31 Encounter for screening mammogram for malignant neoplasm of breast (principal)
CPT/HCPCS: 77063; 77067

== ENCOUNTER 2022-04-17 08:30 | Outpatient (CLI) | payer OTHER, SELFPAY ==
[2022-04-17 20:35] LABS: Basophils Percent Auto 0.4 % (0.2-1.2); Eosinophils Absolute Auto 0.1 K/mm3 (0-0.3); Eosinophils Percent Auto 1.8 % (0-4.4); Hematocrit 41.9 % (37.0-47.0); Hemoglobin 13.3 g/dL (12.0-15.0); Immature Granulocyte Absolute 0.01 K/mm3 (0.00-0.031); Immature Granulocyte Percent A 0.1 % (0-0.5); Lymphocytes Absolute Auto 1.12 K/mm3 (0.9-3.2); Lymphocytes Percent Auto 15.9 % (18.3-44.2); Mean Corpuscular HGB Conc 31.7 g/dl (32-36); Mean Corpuscular Hemoglobin 26.4 pg (26-34); Mean Corpuscular Volume 83.3 fl (80-100); Mean Platelet Volume 9.3 fl (7.4-10.4); Monocytes Absolute Auto 0.4 K/mm3 (0.1-0.6); Monocytes Percent Auto 5.2 % (2.6-8.5); Neutrophils Absolute Auto 5.4 K/mm3 (1.3-6.7); Neutrophils Percent Auto 76.6 % (45.5-73.1); Platelet Count Result 253 k/mm3 (150-375); Red Blood Count 5.03 M/mm3 (4.2-5.4); Red Cell Distribution Width 13.4 % (11.5-14.5); White Blood Count 7.1 K/mm3 (4.5-10.0)
[2022-04-17 21:26] LABS: Alanine Aminotransferase 22 U/L (6-35); Albumin Level 4.6 g/dL (3.5-5.1); Alkaline Phosphatase 129 U/L (38-126); Anion Gap 7 mmol/L (8-16); Aspartate Amino Transferase 42 U/L (14-36); Bilirubin,Total 0.7 mg/dL (0.2-1.3); Blood Urea Nitrogen 22 mg/dL (7-17); Calcium 9.6 mg/dL (8.4-10.2); Carbon Dioxide 32 mmol/L (22-30); Chloride 99 mmol/L (98-107); Cholesterol 167 mg/dL (0-200); Estimated Glomerular Filt Rate > 60; Glucose 71 mg/dL (65-110); HDL Direct 63 mg/dL; Potassium 4.3 mmol/L (3.4-5.0); Sodium 138 mmol/L (137-145); Triglycerides 121 mg/dL (<150)
[2022-04-17 21:36] LABS: LDL Cholesterol Direct 65 mg/dL
[2022-04-17 22:20] LABS: Hemoglobin A1C 5.5 % (<5.7)
== END 2022-04-17 08:31 | disposition home or self-care (01) ==
LOC: ANHGOSHLAB 08:31
PROVIDERS: PCP Family Medicine; Visit Provider Family Medicine
DX: I10 Essential (primary) hypertension (principal); Z13.220 Encounter for screening for lipoid disorders; Z86.32 Personal history of gestational diabetes; E61.1 Iron deficiency; R53.83 Other fatigue; Z13.29 Encounter for screening for other suspected endocrine disorder
CPT/HCPCS: 36415; 80053; 80061; 83036; 84443; 85025

== ENCOUNTER → 2023-04-18 10:35 | Outpatient (CLI) | payer OTHER, SELFPAY ==
--- NOTE | ~2023-04-18 | MM_ITS ---
EXAMINATION: MM screening jalen BI w heidy HISTORY: Screening mammogram TECHNIQUE: Craniocaudal and mediolateral oblique 3-D tomosynthesis images were obtained and synthetic 2-D images were generated. CAD analysis was submitted and interpreted. COMPARISON: 10/16/2021 BREAST PARENCHYMAL COMPOSITION:Not Dense. The breasts are almost entirely fatty FINDINGS: No suspicious mass, calcification, or architectural distortion are identified in either maggy ast to suggest malignancy. There has been no suspicious interval change. IMPRESSION: No mammographic evidence of malignancy. Recommend routine screening mammography in one year. BI-RADS Category 1: Negative Reviewed, dictated and finalized at location . E WORKER
== END ==
PROVIDERS: PCP Nurse Practitioner; Visit Provider Nurse Practitioner
DX: Z12.31 Encounter for screening mammogram for malignant neoplasm of breast (principal)
CPT/HCPCS: 77063; 77067

== ENCOUNTER 2023-04-20 09:19 | Outpatient (CLI) | payer OTHER, SELFPAY ==
[2023-04-20 17:45] LABS: Alanine Aminotransferase 15 U/L (6-35); Albumin Level 4.4 g/dL (3.5-5.1); Alkaline Phosphatase 119 U/L (38-126); Anion Gap 10 mmol/L (8-16); Aspartate Amino Transferase 36 U/L (14-36); Bilirubin,Total 0.6 mg/dL (0.2-1.3); Blood Urea Nitrogen 18 mg/dL (7-17); Calcium 9.7 mg/dL (8.4-10.2); Carbon Dioxide 27 mmol/L (22-30); Chloride 99 mmol/L (98-107); Cholesterol 169 mg/dL (0-200); Estimated Glomerular Filt Rate > 60; Glucose 92 mg/dL (65-110); HDL Direct 61 mg/dL; Potassium 3.3 mmol/L (3.4-5.0); Sodium 136 mmol/L (137-145); Triglycerides 121 mg/dL (<150)
[2023-04-20 17:55] LABS: LDL Cholesterol Direct 83 mg/dL
[2023-04-20 18:24] LABS: Hemoglobin A1C 5.4 % (<5.7)
== END 2023-04-20 09:20 | disposition home or self-care (01) ==
LOC: ANHGOSHLAB 09:20
PROVIDERS: PCP Nurse Practitioner; Visit Provider Family Medicine
DX: Z13.228 Encounter for screening for other metabolic disorders (principal); Z13.220 Encounter for screening for lipoid disorders; Z86.32 Personal history of gestational diabetes
CPT/HCPCS: 36415; 80053; 80061; 83036

== ENCOUNTER 2024-08-24 08:11 | Emergency (ER) | payer OTHER, SELFPAY ==
--- NOTE | 2024-08-24 08:14 | ED_ITS ---
HPI - URI/Sore Throat General Chief Complaint: Upper Respiratory Infection Stated Complaint: Sinus Time Seen by Provider: 08/24/24 08:16 Source: patient Mode of arrival: ambulatory Limitations: no limitations History of Present Illness HPI Narrative: Ramona is a 43-year-old female patient presenting to the clinic today with complaints of sore throat, losing voice, and nasal congestion x3 days. She reports symptoms started after she mowed the lawn. Has been taking Zyrtec, Chloraseptic spray, and ibuprofen for discomfort. Rates her pain 7/10 when she is talking but otherwise as 0/10. Feels as though there is drainage going in the back of her throat. Denies any fevers, chills, body aches. Denies any chest pain or shortness of breath. Related Data Home Medications ?Medication ?Instructions ?Recorded ?Confirmed ?Last Taken ?Type multivit with minerals-iron 18 1 tablet PO DAILY 02/14/19 07/28/24 01/13/21 08:00 History mg-folic ac 400 mcg-vit K 25 mcg tablet (Adults Multivitamin) aspirin 81 mg tablet,delayed 81 mg PO DAILY 10/16/22 07/28/24 Unknown History release (Adult Low Dose Aspirin) Allergies Allergy/AdvReac Type Severity Reaction Status Date / Time BRAULIO Inhibitors Allergy Severe angioedema Verified 08/24/24 08:22 labetalol Allergy Severe hepatitis Verified 08/24/24 08:22 methyldopa Allergy Severe Depression Verified 08/24/24 08:22 Review of Systems Review of Systems: Pertinent positives per HPI. Patient denies any fever, chills, rash, headache, visual changes, dizziness, cough, shortness of breath, chest pain, palpitations, nausea, vomiting, diarrhea, constipation, abdominal pain, or any urinary issues. 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 Anxiety Hyperlipidemia SVT (supraventricular tachycardia) Essential (primary) hypertension Surgical History Surgical History History of section Family History Family History Mother A-fib Hypertension Father SVT (supraventricular tachycardia) Family history of chronic obstructive pulmonary disease Hypertension Sibling Hypertension Dandy-Walker syndrome Heart attack Grandparent Parkinson disease Hypertension Breast cancer in female Daughter Trisomy 18 Social History Social History Smoking status: Never smoker Second hand tobacco smoke exposure: Yes Smoking end date: 02/23/03 Alcohol intake: current Substance use: never Substance use type: does not use Do You Feel Safe in your Home?: Yes Lack of Transportation: No Lack of Food: Never True Current Housing: I Have Housing Concerned About Future Housing: No Difficulty Paying Gas/Electric Bills: No Difficulty Paying for Meds: No Currently Unemployed: No Education: Bachelor's Degree Difficulty w/ Childcare or Family Care: No Gender identity (if verbalized by the patient): Female Spiritual care concerns: No Comments At the time of my signature, I reviewed and agree with the nursing past medical, surgical, social, and family history. There is no relevant family history pertinent to the patient complaint. Exam Narrative: General: Well-developed, well nourished, in no apparent distress Head: Normocephalic, atraumatic Eyes: Pupils equally round and reactive to light bilaterally, EOM intact, sclera and conjunctive clear, no discharge, lids normal Ears: TMs intact and clear, ear canals clear, no drainage, grossly hearing normal. Nose: Nares patent, clear nasal discharge, mild inflammation, no sinus tenderness. Mouth: Oral pharynx without lesions or masses, good dentition, MMM. Postnasal drip Neck: Supple, trachea midline, no enlargement of anterior or posterior cervical nodes, no thyroid masses or goiter palpable. Cardio: Regular rate and rhythm, s1 and s2 normal, no murmur appreciated. Resp: Clear to auscultation bilaterally, no rhonchi, rales, wheezing or rubs Course Course Emergency Course: Portions of this record may have been created with voice recognition software. Level of Care: Express Care Visit Vital Signs Vital signs: Vital Signs Temperature 36.6 C 08/24/24 08:18 Pulse Rate 79 08/24/24 08:18 Respiratory Rate 14 08/24/24 08:18 Blood Pressure 126/77 08/24/24 08:18 Pulse Oximetry 100 08/24/24 08:18 Oxygen Delivery Room Air 08/24/24 08:18 Temperature 36.6 C 08/24/24 08:18 Pulse Rate 79 08/24/24 08:18 Respiratory Rate 14 08/24/24 08:18 Blood Pressure 126/77 08/24/24 08:18 Pulse Oximetry 100 08/24/24 08:18 Oxygen Delivery Room Air 08/24/24 08:18 Vital signs reviewed MDM - URI/Sore Throat MDM Narrative Medical decision making narrative: At the time of visit patient is resting comfortably on the exam table. Patient appears to be nontoxic. Labs: Strep and COVID testing was performed in the clinic today. Strep and COVID test was negative we will send strep for culture. Plan: I suspect patient has allergic rhinitis with postnasal drip. Supportive measures were discussed with the patient and they voiced understanding discharge instructions and agrees to treatment plan. Return precautions reviewed Differential Diagnosis Differential diagnosis: Likely upper respiratory infection, otitis media, sinusitis, viral infection, bronchitis, influenza, pharyngitis and other (COVID) Lab Data Labs: Lab Results 08/24/24 08/24/24 Range/Units 08:42 08:45 POC SARS CoV-2 Ag Negative (Negative) POC Grp A Strep Screen Negative (Negative) Discharge Plan Discharge Clinical Impression: Allergic rhinitis with postnasal drip Patient Disposition: Home Condition: Stable Instructions: Antibiotic Form, Postnasal Drip (DC) Additional Instructions: Strep and COVID testing was negative in the clinic today. We will send strep for culture if this comes back positive we will contact you and place you on antibiotics at that time. Increase fluids and stay well hydrated Tylenol/motrin for pain/fever Flonase and OTC antihistamines such as Zyrtec or Claritin as directed Vicks vapor rub to open sinuses Sinus rinses for congestion Cepacol spray, cough drops, throat lozenges, warm tea with honey/lemon, gargle salt water to soothe throat BRAT diet for diarrhea Clear liquids x 24 hours then advance as tolerated for nausea/vomiting Go to the ED if you develop a worsening in your condition- high fever not controlled by Tylenol or Motrin, dehydration, weakness, lethargy, shortness of breath, or chest pain. Follow up with your PCP in 3-5 days if symptoms persist. Patient Language: Greenlandic Prescriptions: No Action Adults Multivitamin 18 mg iron-400 mcg-25 mcg Tablet 1 tablet PO DAILY aspirin [Adult Low Dose Aspirin] 81 mg tablet,delayed release (DR/EC) 81 mg PO DAILY olmesartan 20 mg tablet 20 mg PO DAILY Qty: 30 5RF chlorthalidone 25 mg tablet 25 mg PO DAILY Qty: 90 1RF clonazepam 0.5 mg tablet 0.5 mg PO DAILY PRN (Reason: anxiety) Qty: 20 0RF Rx Instructions: Take 1 tablet as needed for severe anxiety. Please use as sparingly as possible. diltiazem HCl 240 mg capsule,extended release 24hr See Rx Instructions .ROUTE .COMPLEX Qty: 90 0RF Dose Instruction: TAKE 1 CAPSULE BY MOUTH DAILY Rx Instructions: TAKE 1 CAPSULE BY MOUTH DAILY sertraline 50 mg tablet See Rx Instructions .ROUTE .COMPLEX Qty: 90 0RF Dose Instruction: TAKE 1 TABLET BY MOUTH DAILY Rx Instructions: TAKE 1 TABLET BY MOUTH DAILY hydroxyzine HCl 25 mg tablet See Rx Instructions .ROUTE .COMPLEX Qty: 90 0RF Dose Instruction: TAKE 1 TABLET BY MOUTH FOUR TIMES DAILY NEEDED FOR ANXIETY Rx Instructions: TAKE 1 TABLET BY MOUTH FOUR TIMES DAILY NEEDED FOR ANXIETY Follow-up/Referrals: Trish Black DO [Primary Care Provider] - Stand Alone Forms: Work/School Release IP Time of Disposition: 08:39 Quality NIHSS Nursing Documentation ED NIHSS nursing documentation: reviewed/agree
[2024-08-24 08:18] VITALS: BP 126/77; PULSE 79; RESP 14; TEMP 36.6; O2SAT 100
[2024-08-24 08:45] LABS: EDSTREPNEGPOS1 Negative (Negative)
[2024-08-24 08:47] LABS: EDCOVIDSCREEN Negative (Negative)
== END 2024-08-24 08:44 | disposition home or self-care (01) ==
PROVIDERS: Emergency Provider Nurse Practitioner Family; PCP Family Medicine
DX: J30.9 Allergic rhinitis, unspecified (principal); R09.82 Postnasal drip; Z20.822 Contact with and (suspected) exposure to COVID-19; Z87.891 Personal history of nicotine dependence; E78.5 Hyperlipidemia, unspecified; I10 Essential (primary) hypertension; Z79.82 Long term (current) use of aspirin
CPT/HCPCS: 87081; 87426; 87880; 99213; G0463

== ENCOUNTER 2025-02-02 13:32 | Outpatient (CLI) | payer OTHER, SELFPAY ==
--- NOTE | ~2025-02-02 | MM_ITS ---
EXAMINATION: MM screening jalen BI w heidy HISTORY: Screening. TECHNIQUE: Craniocaudal and mediolateral oblique 3-D tomosynthesis images were obtained and synthetic 2-D images were generated. CAD analysis was submitted and interpreted. COMPARISON: 2023 and 2021. BREAST PARENCHYMAL COMPOSITION: Not Dense: There are scattered areas of fibroglandular FINDINGS: No suspicious masses are seen. There are no suspicious calcifications. No unexplained architectural distortion is seen. There are no skin or nipple abnormalities identified. There is no adenopathy seen on the images submitted. IMPRESSION: No mammographic evidence to suggest malignancy is seen. The patient may return to screening mammography as per ACR guidelines. BI-RADS 1 - Negative. Reviewed, dictated and finalized at location C. OBIOLOGY COORDINATOR
== END 2025-02-02 13:33 | disposition home or self-care (01) ==
LOC: MICIMG 13:32
PROVIDERS: PCP Family Medicine; Visit Provider Family Medicine
DX: Z12.31 Encounter for screening mammogram for malignant neoplasm of breast (principal)
CPT/HCPCS: 77063; 77067